=== PATIENT | female | born 1945 | race Caucasian/White ===

== ENCOUNTER 2017-04-19 09:50 | Emergency (ER) | payer BC, OTHER ==
[~2017-04-19] VITALS: Ht 167.6 cm; Wt 62.5 kg
[2017-04-19 09:55] VITALS: TEMP 36.7; Ht 167.6 cm; Wt 62.5 kg
[2017-04-19] MEDS ORDERED: BILB40CA4 PO (10:24)
[2017-04-19] MEDS ORDERED: ASCO10003 PO (10:24)
[2017-04-19] MEDS ORDERED: OMEG10007 PO (10:24)
[2017-04-19] MEDS ORDERED: [UNRECOGNIZED DRUG - OTHER] PO (10:24)
[2017-04-19] MEDS ORDERED: CQ10 PO (10:24)
[2017-04-19] MEDS ORDERED: CALC500C70 PO (10:24)
[2017-04-19] MEDS ORDERED: NAPR1TAB9 PO (10:25)
--- NOTE | 2017-04-19 11:26 | DIAGNOSTIC IMAGING REPORT ---
LEFT ANKLE MIN 3 VIEWS ROUTINE, LEFT FOOT MIN 3 VIEWS ROUTINE HISTORY: 71 years-old Female acute left-sided ankle swelling/pain COMPARISON: None available TECHNIQUE: 3 views of the left ankle and 3 views of the left foot. FINDINGS: Ankle: There is a 3 mm bone fragment adjacent to the medial malleolus. There is moderate circumferential soft tissue swelling about the ankle a small joint effusion. There is spurring about the calcaneus and dorsal midfoot. Foot: Moderate degenerative changes are seen within the first MTP joint with hallux valgus deformity. Bones are mildly demineralized. Type II accessory navicular is present. Bone fragment is noted adjacent to the medial malleolus. Bones of the foot appear intact. There is moderate dorsal forefoot soft tissue swelling. IMPRESSION: 1. Small bone fragment adjacent to the medial malleolus suggests acute avulsion fragment with moderate ankle soft tissue swelling and small joint effusion. 3. Moderate dorsal forefoot soft tissue swelling without additional acute fracture or dislocation. The above report was generated using voice recognition software. It may contain grammatical, syntax or spelling errors. Electronically signed by: Morris Carranza M.D. 04/19/2017 11:25 AM Dictated Date/Time: 04/19/2017 11:23 AM
--- NOTE | 2017-04-19 11:59 | EMERGENCY ROOM VISIT NOTE ---
ED Visit Note First contact with patient: 10:00 CHIEF COMPLAINT: Left ankle and foot pain HISTORY OF PRESENT ILLNESS: This 71-year-old female patient presents to the emergency department 1 day after sustaining an injury to the left ankle and foot when she fell at 4:30 in the morning. The patient states she got up and out of bed, and believes she tripped over an object. The patient states she fell down, but denies head injury. She does report left foot and ankle pain. The patient states immediately after the incident, she soaked her foot in warm water. She states this did help to loosen the discomfort. The patient states she then put ice on the foot, which does seem to have helped as well. The patient complains of pain along the outside of the ankle, and now worse on the inside of the ankle. The patient does have pain on top of the foot. The patient rates the pain as sharp with weightbearing, with a little bit of numbness and 0/10 at rest, 5/10 with weightbearing. The patient is able to bear weight on the foot. Pain is worse with movement, weight bearing, and the dependent position. No knee pain, the patient is able to move their toes. No tingling or weakness of the foot, no laceration. The patient has not had a previous fracture to this ankle. The patient has taken Aleve yesterday, which did help the pain. The patient denies any other injury. REVIEW OF SYSTEMS: A 6 system review of systems was completed with positives and pertinent negatives listed in the HPI. ALLERGIES: Sulfa MEDICATIONS: Various OTC vitamins. I did personally review the medication list at bedside. PMH: None SOCIAL HISTORY: The patient lives locally with family. She denies drug, alcohol , tobacco use. PHYSICAL EXAM: Vital Signs: Reviewed Nurse's notes, vital signs stable. GENERAL : This is a very active, 71-year-old female, no acute distress, well-developed , well-nourished. MENTAL STATUS: Alert, oriented to person place and time, and cooperative. MUSCULOSKELETAL: The left ankle and foot are extremely swollen with ecchymosis. There is some mild tenderness over the medial and lateral malleoli, as well as on the dorsal aspect of the foot. The skin is intact and there is no ligamentous instability. There is no fifth metatarsal tenderness. There is no tenderness over the rest of the foot. There is no calf or tibia/ fibular tenderness. There is no visual deformity. The foot and toes are warm and well-perfused. Dorsalis pedis pulse 2+. Sensation to pain and light touch is intact. Capillary refill less than 2 seconds. RADIOLOGY: X-ray left foot and ankle: FINDINGS: Ankle: There is a 3 mm bone fragment adjacent to the medial malleolus. There is moderate circumferential soft tissue swelling about the ankle a small joint effusion. There is spurring about the calcaneus and dorsal midfoot. Foot: Moderate degenerative changes are seen within the first MTP joint with hallux valgus deformity. Bones are mildly demineralized. Type II accessory navicular is present. Bone fragment is noted adjacent to the medial malleolus. Bones of the foot appear intact. There is moderate dorsal forefoot soft tissue swelling. IMPRESSION: 1. Small bone fragment adjacent to the medial malleolus suggests acute avulsion fragment with moderate ankle soft tissue swelling and small joint effusion. 3. Moderate dorsal forefoot soft tissue swelling without additional acute fracture or dislocation. EMERGENCY DEPARTMENT COURSE: I examined the patient. X-rays of the left foot and ankle were reviewed by myself and read by radiology and reveal small avulsion fracture on the medial malleolus as well as soft tissue swelling around the foot. A walking boot was applied to the ankle under my direction and the position was satisfactory. I did offer the patient crutches, a walker, or a cane, and she refuses. I also offered the patient pain medication in the emergency department or as a prescription, and she refuses this as well. The patient was seen by Dr. Lr, who did personally evaluate the patient at bedside. We agreed that the patient should see orthopedics. The patient states she may not, so case management was asked to help her establish an appointment with [facility]. The patient was discharged home in good condition. Patient was found to have normal blood pressure on screening and does not require follow-up. DIFFERENTIAL DIAGNOSIS: Fracture, contusion, sprain, strain, malignancy, and others DIAGNOSIS: Avulsion fracture of medial malleolus, left ankle sprain DISCHARGE INSTRUCTIONS: ORTHOPEDIC INSTRUCTIONS: Ibuprofen(Motrin, Advil) may be used for fever or pain. Use 600mg every six hours as needed. Take with food. Avoid using more than 2400mg in a 24 hour period. Do not use 2400mg per day for more than three consecutive days without physician direction. Prolonged inappropriate use can lead to stomach upset or ulcers. (AND/OR) Acetaminophen(Tylenol) may be used for fever or pain. Use 1000mg every six to eight hours as needed. Avoid using more than 3000mg in a 24 hour period. Ice compresses for 20 minutes at a time four times daily for 2-3 days. I do recommend you use a walker or cane to help to avoid weightbearing as much as possible on the foot. Wear the boot to help with ambulation. Rest and elevate your injury. Return to the ER immediately for any numbness, tingling, severe pain, extreme swelling in the extremity or as needed. The film processing utility worker will help to get you established with [facility] for follow-up this week. Please keep this appointment and see them as directed. Follow-up with your primary care physician in 2 to 3 days for a recheck of your current condition. Current/Historical Medications Scheduled Ascorbic Acid (Vitamin C), 1 TAB PO QAM Bilberry (Vaccinium Myrtillus) (Bilberry), 0 PO QAM Calcium/Vitamin D (Os-Stef 500 Plus D), 1 TAB PO QAM Fish Oil (Kaibeto-3), 1 CAP PO QAM Naproxen (Aleve), 440 MG PO UD [Cq10], 1 TAB PO QAM [Mineral Rich], 2 TBS PO THURSDAY Allergies Coded Allergies: Sulfa Antibiotics (Unverified Allergy, Intermediate, HIVES, 04/19/17) Vital Signs Date Time Temp Pulse Resp B/P (MAP) Pulse Ox O2 Delivery O2 Flow Rate FiO2 04/19/17 09:55 36.7 84 16 130/81 98 Room Air Departure Information Impression Primary Impression: Avulsion fracture of ankle Additional Impression: Ankle sprain Dispostion Home / Self-Care Condition GOOD Referrals Aby Hernandez, C.R.N.P (PCP) [facility] Patient Instructions ED Sprain Ankle, [facility] Additional Instructions ORTHOPEDIC INSTRUCTIONS: Ibuprofen(Motrin, Advil) may be used for fever or pain. Use 600mg every six hours as needed. Take with food. Avoid using more than 2400mg in a 24 hour period. Do not use 2400mg per day for more than three consecutive days without physician direction. Prolonged inappropriate use can lead to stomach upset or ulcers. (AND/OR) Acetaminophen(Tylenol) may be used for fever or pain. Use 1000mg every six to eight hours as needed. Avoid using more than 3000mg in a 24 hour period. Ice compresses for 20 minutes at a time four times daily for 2-3 days. I do recommend you use a walker or cane to help to avoid weightbearing as much as possible on the foot. Wear the boot to help with ambulation. Rest and elevate your injury. Return to the ER immediately for any numbness, tingling, severe pain, extreme swelling in the extremity or as needed. The film processing utility worker will help to get you established with [facility] for follow-up this week. Please keep this appointment and see them as directed. Follow-up with your primary care physician in 2 to 3 days for a recheck of your current condition. Problem Qualifiers Primary Impression: Avulsion fracture of ankle Encounter type: initial encounter Fracture type: closed Laterality: left Qualified Codes: S82.892A - Other fracture of left lower leg, initial encounter for closed fracture Additional Impression: Ankle sprain Encounter type: initial encounter Involved ligament of ankle: unspecified ligament Laterality: left Qualified Codes: S93.402A - Sprain of unspecified ligament of left ankle, initial encounter
[2017-04-19 13:00] VITALS: BP 122/80; PULSE 78; O2SAT 98
== END 2017-04-19 13:00 | disposition home or self-care (01) ==
LOC: C.EDB 09:51 → C.EDA 13:00
DX: M84.472A Pathological fracture, left ankle, initial encounter for fracture (principal); S93.402A Sprain of unspecified ligament of left ankle, initial encounter; W19.XXXA Unspecified fall, initial encounter

== ENCOUNTER → 2017-11-16 | Outpatient (CLI) | payer BC ==
[~2017-11-16] MED LIST: ASCO10003 PO; BILB40CA4 PO; CALC500C70 PO; CQ10 PO; NAPR1TAB9 PO; OMEG10007 PO; [UNRECOGNIZED DRUG - OTHER] PO
== END | disposition home or self-care (01) ==
LOC: C.LAB 09:57
PROVIDERS: ATTEND Obstetrics & Gynecology
DX: Z85.43 Personal history of malignant neoplasm of ovary (principal)

== ENCOUNTER 2019-12-25 11:02 | Observation (INO) ==
--- NOTE | 2019-12-25 11:39 | Emergency Department Note ---
Impression & Plan Acute congestive heart failure, Bilateral pleural effusion, Shortness of breath, Abnormal EKG ED Provider Note NAME: GEORGE PICKENS AGE: 74 SEX: F : 1945 ARRIVES VIA: Walk-In INFORMANT: Patient ED PROVIDER(S): Evin Ordonez DO CHIEF COMPLAINT: Shortness of breath HPI: Patient is a 74-year-old female who presents the ER for shortness of breath. Shortness of breath has been present for the past month. She was seen twice at [facility] and placed on doxycycline and Tessalon Perles. She was told she was diagnosed with pneumonia. She denies any current chest pain. She did note that around November 25 she had chest pain with swallowing but this all resolved after she took doxycycline. She was also placed on antireflux medication. Patient still admits to a dry persistent cough which is been worsening over this past month. No other exacerbating or remitting factors. No fevers. No belly pain nausea vomiting diarrhea. No chest pain. Shortness of breath that is worsened with any kind of movement. Patient denies swelling of calves, recent trips, history of immobilization or recent surgery, prior history of DVT, hemoptysis, history of malignancy, history of smoking, or control/estrogen use. Patient denies diabetes, hypertension, hyperlipidemia, CAD, and history of sudden at a young age. ROS: See above HPI for pertinent positives & negatives. A total of 10 systems reviewed and were otherwise negative. PAST MEDICAL HISTORY:Uterine cancer PAST SURGICAL HISTORY:Hysterectomy FAMILY HISTORY:Coronary artery disease SOCIAL HISTORY:See Below HOME MEDICATIONS:See Below ALLERGIES:See Below VITALS:See Below PHYSICAL EXAMINATION: GENERAL: Sitting up in bed, alert, well appearing, well nourished, no distress, non-toxic EYE EXAM: normal conjunctiva. OROPHARYNX: no exudate, no erythema, lips, buccal mucosa, and tongue normal and mucous membranes are moist NECK: supple, no nuchal rigidity, no adenopathy, non-tender LUNGS: Clear to auscultation. Normal chest wall mechanics HEART: no murmurs, S1 normal and S2 normal ABDOMEN: abdomen soft, non-tender, normo-active bowel sounds, no masses, no rebound or guarding. BACK: Back is symmetrical on inspection and there is no deformity, no midline tenderness, no CVA tenderness. SKIN: no rashes and no bruising UPPER EXTREMITIES: upper extremities are grossly normal. LOWER EXTREMITIES: Calves are equal bilateral NEURO EXAM: Normal sensorium, cranial nerves II-XII grossly intact, normal s peech, no gross weakness of arms, no gross weakness of legs. MEDICAL DECISION MAKING: Patient is a 74-year-old female who presents the ER for shortness of breath which has been present for the past month. She notes that when she lays down she does cough. No change for doxycycline. IV was established blood work was obtained shows no significant leukocytosis or anemia. INR was unremarkable. D- dimer was significantly elevated. BMP with a slightly elevated chloride. LFTs bilirubin and troponin was negative. TSH unremarkable. Influenza was negative. Chest x-ray with pleural effusions. CT Eda of the chest was performed due to the d-dimer shortness of breath and persistent tachycardia. Poor study with bilateral filling defects which are favored to be poor contrast timing per radiology. Duplex of the lower extremities was ordered. Discussed with the h ospitalist for observation due to likely new onset CHF. We will hold on anticoagulation till duplex of lower extremities. Patient was updated bedside. In agreement with treatment plan. Triage Nursing notes reviewed. Prior medical records reviewed Vital Signs: reviewed and remarkable for Tachycardia Differential diagnosis: Differential diagnoses includes but is not limited to pneumonia, bronchitis, COPD/Asthma exacerbation, pneumothorax, pulmonary embolism, congestive heart failure, acute coronary syndrome ER treatment provided: See below Diagnostics interpreted by me: ECG: Sinus tachycardia rate of 112 Normal axis PVCs Left bundle branch block Cardiac Monitoring: An order was placed for continuous cardiac monitoring. The monitor shows a rate of 101 with sinus rhythm. Laboratory studies: As stated above and show below. Imaging studies: Portable AP upright 1 view of the chest shows no focal infiltrate but bilateral pleural effusions CT Eda of the chest with poor timing with bilateral pleural effusions and indeterminate PEs. Consultation(s): Discussed with Dr. Ricardo Walls. ED COURSE: Procedures: none Critical Care: None Past Med/Surg History Social History Feels Safe at Home: Yes Allergies Allergies Allergy/AdvReac Type Severity Reaction Status Date / Time Sulfa (Sulfonamide Allergy Intermediate HIVES Unverified 12/25/19 12:00 Antibiotics) Home Meds Home Medications Medication Instructions Recorded Confirmed No Known Home Medications 12/25/19 12/25/19 Results & Data (ED) Vital Signs Vital Signs - 24 hr 12/25/19 11:11 12/25/19 11:40 12/25/19 12:01 Temperature 36.9 C Temperature Source Oral Pulse Rate 111 H Pulse Rate [Apical] 82 Pulse Rhythm [Apical] Irregular Respiratory Rate 18 18 Respiratory Effort / Characteristics Non-Labored Non-Labored Spontaneous Non-Labored Spontaneous Respiratory Depth Normal Normal Normal Respiratory Pattern Regular Regular Blood Pressure 126/93 Blood Pressure [Left Arm] 105/85 Blood Pressure Mean 104 Blood Pressure Mean [Left Arm] 91 Blood Pressure Position Sitting Pulse Oximetry 97 93 Oxygen Delivery Method Room Air Room Air Room Air Sepsis Recent Fever Within 48 Hours No Sepsis Action Taken by Nursing No Action Required 12/25/19 12:05 12/25/19 13:00 12/25/19 13:46 Temperature Temperature Source Pulse Rate 96 H Pulse Rate [Apical] 99 H 93 H Pulse Rhythm [Apical] Respiratory Rate 18 18 17 Respiratory Effort / Characteristics Non-Labored Spontaneous Non-Labored Spontaneous Respiratory Depth Normal Normal Respiratory Pattern Regular Regular Blood Pressure Blood Pressure [Left Arm] 112/77 124/81 Blood Pressure Mean Blood Pressure Mean [Left Arm] 88 95 Blood Pressure Position Pulse Oximetry 94 93 95 Oxygen Delivery Method Room Air Room Air Room Air Sepsis Recent Fever Within 48 Hours Sepsis Action Taken by Nursing Laboratory Data Result diagrams: 12/25/19 11:45 12/25/19 11:45 Lab Results 12/25/19 12/25/19 12/25/19 Range/Units 11:45 11:45 11:45 WBC 5.64 (4.8-10.8) K/uL RBC 4.31 (4.2-5.4) M/uL Hgb 14.2 (12.0-16.0) g/dL Hct 41.1 (37-47) % MCV 95.4 (80-100) fL MCH 32.9 (25-34) pg MCHC 34.5 (32-36) g/dL RDW Std Deviation 54.5 H (36.4-46.3) fL RDW Coeff of Miranda 15.5 H (11.5-14.5) % Plt Count 190 (130-400) K/uL MPV 12.3 H (7.4-10.4) fL Immature Gran % (Auto) 0.2 % Neut % (Auto) 69.4 % Lymph % (Auto) 18.1 % [place] % (Auto) 10.8 % Eos % (Auto) 1.1 % Baso % (Auto) 0.4 % Immature Gran # (Auto) 0.01 (0.00-0.02) K/uL Neut # (Auto) 3.92 (1.4-6.5) K/uL Lymph # (Auto) 1.02 L (1.2-3.4) K/uL [place] # (Auto) 0.61 H (0.11-0.59) K/uL Eos # (Auto) 0.06 (0-0.5) K/uL Baso # (Auto) 0.02 (0-0.2) K/uL PT 11.5 (9.0-12.0) Seconds INR 1.1 (0.9-1.1) APTT 26.3 (21.0-31.0) Seconds PTT Ratio 0.9 D-Dimer 2280 H* (0-500) ug/L FEU Sodium 141 (136-145) mmol/L Potassium 4.0 (3.5-5.1) mmol/L Chloride 109 H (98-107) mmol/L Carbon Dioxide 23 (21-32) mmol/L Anion Gap 9.0 (3-11) BUN 20 H (7-18) mg/dl Creatinine 0.69 (0.6-1.2) mg/dl Est Cr Clr Drug Dosing 67.0 ml/min Est GFR ( Amer) 99.4 Est GFR (Non-Af Amer) 85.8 BUN/Creatinine Ratio 29.2 H (10-20) Glucose 123 H (70-99) mg/dl Calcium 9.0 (8.5-10.1) mg/dl Total Bilirubin 0.7 (0.2-1) mg/dl AST 45 H (15-37) U/L ALT 76 (12-78) U/L Alkaline Phosphatase 74 (45-117) U/L Troponin I < 0.015 (0-0.045) ng/ml NT-Pro-B Natriuret Pep 5424 H (0-900) pg/ml Total Protein 6.9 (6.4-8.2) gm/dl Albumin 3.8 (3.4-5.0) gm/dl Globulin 3.1 (2.5-4.0) gm/dl Albumin/Globulin Ratio 1.2 (0.9-2) Influenza Type A (PCR) (Neg) Influenza Type B (PCR) (Neg) 12/25/19 Range/Units 11:48 WBC (4.8-10.8) K/uL RBC (4.2-5.4) M/uL Hgb (12.0-16.0) g/dL Hct (37-47) % MCV (80-100) fL MCH (25-34) pg MCHC (32-36) g/dL RDW Std Deviation (36.4-46.3) fL RDW Coeff of Miranda (11.5-14.5) % Plt Count (130-400) K/uL MPV (7.4-10.4) fL Immature Gran % (Auto) % Neut % (Auto) % Lymph % (Auto) % [place] % (Auto) % Eos % (Auto) % Baso % (Auto) % Immature Gran # (Auto) (0.00-0.02) K/uL Neut # (Auto) (1.4-6.5) K/uL Lymph # (Auto) (1.2-3.4) K/uL [place] # (Auto) (0.11-0.59) K/uL Eos # (Auto) (0-0.5) K/uL Baso # (Auto) (0-0.2) K/uL PT (9.0-12.0) Seconds INR (0.9-1.1) APTT (21.0-31.0) Seconds PTT Ratio D-Dimer (0-500) ug/L FEU Sodium (136-145) mmol/L Potassium (3.5-5.1) mmol/L Chloride (98-107) mmol/L Carbon Dioxide (21-32) mmol/L Anion Gap (3-11) BUN (7-18) mg/dl Creatinine (0.6-1.2) mg/dl Est Cr Clr Drug Dosing ml/min Est GFR ( Amer) Est GFR (Non-Af Amer) BUN/Creatinine Ratio (10-20) Glucose (70-99) mg/dl Calcium (8.5-10.1) mg/dl Total Bilirubin (0.2-1) mg/dl AST (15-37) U/L ALT (12-78) U/L Alkaline Phosphatase (45-117) U/L Troponin I (0-0.045) ng/ml NT-Pro-B Natriuret Pep (0-900) pg/ml Total Protein (6.4-8.2) gm/dl Albumin (3.4-5.0) gm/dl Globulin (2.5-4.0) gm/dl Albumin/Globulin Ratio (0.9-2) Influenza Type A (PCR) Neg for Influ A (Neg) Influenza Type B (PCR) Neg for Influ B (Neg) Administered Medications Ioversol (Optiray 320 125ml) 120 ml IV ONCE PRN PRN Reason: Interaction Checking Stop: 12/29/19 12:38 Last Admin: 12/25/19 12:40 Dose: 120 ml Documented by: [id number] Discharge Plan Visit Data Chief Complaint: Shortness of Breath/Dyspnea Stated Complaint: SOB,COUGH ED Provider: Evin Ordonez Discharge Problem: Acute congestive heart failure, Bilateral pleural effusion, Shortness of breath, Abnormal EKG Forms Stand Alone Forms: My [facility] Prescriptions Prescriptions: No Action No Known Home Medications RF: 0
[2019-12-25 12:01] LABS: Basophils # (auto) 0.02 K/uL (0-0.2); Basophils % (auto) 0.4 %; Eosinophils # (auto) 0.06 K/uL (0-0.5); Eosinophils % (auto) 1.1 %; Hematocrit (blood only) 41.1 % (37-47); Hemoglobin 14.2 g/dL (12.0-16.0); Immature Granulocytes # (auto) 0.01 K/uL (0.00-0.02); Immature Granulocytes % (auto) 0.2 %; Lymphocytes # (auto) 1.02 K/uL (1.2-3.4); Lymphocytes % (auto) 18.1 %; Mean Corpuscular Hemoglobin 32.9 pg (25-34); Mean Corpuscular Hgb Conc 34.5 g/dL (32-36); Mean Corpuscular Volume 95.4 fL (80-100); Mean Platelet Volume 12.3 fL (7.4-10.4); Monocytes # (auto) 0.61 K/uL (0.11-0.59); Monocytes % (auto) 10.8 %; Neutrophils # (auto) 3.92 K/uL (1.4-6.5); Neutrophils % (auto) 69.4 %; Platelet Count 190 K/uL (130-400); RDW Coefficient of Variation 15.5 % (11.5-14.5); RDW Standard Deviation 54.5 fL (36.4-46.3); Red Blood Count 4.31 M/uL (4.2-5.4); White Blood Count 5.64 K/uL (4.8-10.8)
[2019-12-25 12:19] LABS: Alanine Aminotransferase 76 U/L (12-78); Albumin Level 3.8 gm/dl (3.4-5.0); Aspartate Aminotransferase 45 U/L (15-37); BUN Creatinine Ratio 29.2 (10-20); Blood Urea Nitrogen 20 mg/dl (7-18); Carbon Dioxide 23 mmol/L (21-32); Chloride 109 mmol/L (98-107); Est GFR (African American) 99.4; Est GFR (Non-African American) 85.8; Glucose 123 mg/dl (70-99); Sodium 141 mmol/L (136-145)
[2019-12-25 12:20] LABS: INR 1.1 (0.9-1.1); Partial Thromboplastin Ratio 0.9; Partial Thromboplastin Time 26.3 Seconds (21.0-31.0); Prothrombin Time 11.5 Seconds (9.0-12.0)
[2019-12-25 12:23] LABS: D Dimer 2280 ug/L FEU (0-500)
[2019-12-25 12:24] LABS: Albumin Globulin Ratio 1.2 (0.9-2); Alkaline Phosphatase 74 U/L (45-117); Bilirubin,Total 0.7 mg/dl (0.2-1); Globulin 3.1 gm/dl (2.5-4.0); NT Pro B Type Natriuretic Pept 5424 pg/ml (0-900); Total Protein 6.9 gm/dl (6.4-8.2); Troponin I < 0.015 ng/ml (0-0.045)
[2019-12-25 12:39] LABS: Influenza A virus by PCR Neg for Influ A (Neg); Influenza B virus by PCR Neg for Influ B (Neg)
[2019-12-25] MEDS ORDERED: OPTIRAY 320 125ml IV PRN (12:39)
--- NOTE | 2019-12-25 13:07 | XRay Report ---
XR chest 1V portable HISTORY: Dyspnea COMPARISON: None. FINDINGS: Cardiac silhouette is mildly enlarged. No pneumothorax. Small bilateral pleural effusions, left greater than right. There is mild central pulmonary vascular congestion without overt edema. The upper lung zones are clear. Bibasilar densities are noted. IMPRESSION: 1. Cardiomegaly with mild congestive change. 2. Small bilateral pleural effusions. Associated bibasilar densities are nonspecific but may represen t atelectasis from the pleural effusions. ACT 112: Negative or not required by law. Electronically signed by: Carlito Castillo M.D. 12/25/2019 1:06 PM
--- NOTE | 2019-12-25 13:16 | CT Scan Report ---
CHEST CTA for PULMONARY ARTERIES CT DOSE: 349.83 mGycm HISTORY: Shortness of breath. Positive d-dimer. TECHNIQUE: Multiaxial CT images of the chest were performed following the intravenous administration of contrast to evaluate the pulmonary arteries. Maximal intensity projection images were also obtaine d. A dose lowering technique was utilized adhering to the principles of ALARA. COMPARISON STUDY: PET scan 01/12/2012. FINDINGS: There is a 3.3 cm left thyroid nodule. Normal esophagus. No mediastinal or hilar lymphadeno connor. Retrograde opacification of the hepatic veins. The visualized liver and spleen appear unremark able. Small bilateral pleural effusions. No pericardial effusion. The heart is moderately enlarged. N ormal caliber thoracic aorta. Inadequate assessment for an aortic dissection due to the lack of intra venous contrast from the timing of the study. Apparent filling defects seen within the left lower lob e segmental and subsegmental pulmonary arteries favors inadequate contrast opacification due to the u nderlying heart dysfunction. However, pulmonary emboli could also have a similar appearance. The irma ining pulmonary arteries appear patent. No fractures within the visualized osseous structures. No pne umothorax. The central airways are patent. Patchy bibasilar densities. Mild interlobular septal thick ening suggestive of developing pulmonary edema. No fractures within the visualized osseous structures . IMPRESSION: 1. Apparent filling defects seen within the left lower lobe segmental and subsegmental pulmonary alecia elza favors inadequate contrast opacification due to the underlying heart dysfunction. However, pulmo nary emboli could also have a similar appearance. Consider follow-up bilateral lower extremity venous Doppler to exclude the possibility of underlying DVT. 2. Cardiomegaly, small bilateral pleural effusions, and mild interlobular septal thickening. This is consistent with developing pulmonary edema. 3. Bibasilar densities are nonspecific but favor compressive atelectasis from the pleural effusions. 4. A 3.3 cm left thyroid nodule. ACT 112: Negative or not required by law. Electronically signed by: Carlito Castillo M.D. 12/25/2019 1:15 PM
--- NOTE | 2019-12-25 13:57 | History & Physical Report ---
Date of Service December 25, 2019 Assessment & Plan (1) Shortness of breath: Suspected due to CHF below. No hypoxia or respiratory distress but recommend observation in hospital given new onset. Low likelihood of PE given slow progressive history with no current chest pain or hypoxia. No COVID-19 contacts and no fevers, chills, loss of taste or smell with slow progressive symptoms over a number of weeks - no need for testing. Remove airborne precautions initiated in ER. (2) Acute congestive heart failure: Suspected based on history, examination, imaging and elevated BNP. TTE pending, if wall motion abnormalities will start ASA and consult cardiology (likely for outpatient cardiac cath) Suspect ischemic cardiomyopathy based on LBBB on EKG (not acute onset as noted on [facility] notes) - fasting lipid profile and HbA1C in AM Lasix IV 40mg ONE. Home dose will be based clinically then and on AM labs. Given tachycardia and high likelihood of heart failure will start on metoprolol succinate 25mg PO daily. If heart rate still > 90 and sBP > 100 will give additional dose tonight. Trend BNP Strict I&Os. Daily weights. Fluid restrict to 1200ml Low Na, heart healthy diet (3) Bilateral pleural effusion: Bilateral but R > L. If TTE unremarkable and need to search for alternative cause will discuss with pulmonology for thoracocentesis of left side. Much less likely cancer related despite history of uterine ca. and thyroid nodule noted below (no pulm, bone, brain mets suspected based on imaging and exam), no significant weight loss (4) Atelectasis of both lungs: Secondary to bilateral pleural effusion. No concern for current PNA based on history and imaging. Incentive spirometry Q1HWA (5) Left bundle branch block: Not new onset as reported on [facility] notes, however new since historic 2011 EKG. (6) Thyroid nodule: Non tender on exam. 3.3cm. TSH WNL. Presumed cancerous until proven otherwise. Patient aware. She does not appear to be having any acute issues from this therefore recommend outpatient follow up with US guided FNA. (7) Gastritis: Recent history of this related to doxycycline use. Resolved with famotidine (equivalent given by [facility]). No longer on this. Monitor symptoms off famotidine (8) DVT prophylaxis: Lovenox 40mg SQ daily. Admission and Anticipated Discharge Date Admission Date: 12/25/2019 History of Present Illness Chief Complaint: Shortness of breath Primary Care Provider: NO PCP Kavitha Smith is a 74 year old female with history of uterine cancer s/p hysterectomy with no routine medical care who presents to the ER with 6 week history of progressively worsening shortness of breath. She reports feeling well prior to this. No sudden event that made her worse. No chest pain, fevers, chills or palpitations at that time. It became progressively worse over the following two weeks and she presented to [facility] on November 25. Diagnosed with pneumonia based on CXR and treated with 10 day course of doxycycline which she did not feel helped. Developed chest pain and returned to [facility] on December 05 and diagnosed with gastritis treated with famotidine (equivalent given at [facility]) thought to be secondary to doxycycline however she finished the whole 10 day course. Her chest pain resolved with medication in approximately 4 days but the shortness of breath has continued to get worse. She notes orthopnea, paroxysmal nocturnal dyspnea. She denies any palpitations, claudication, syncope or presyncope. No weight loss. No prior history of heart attack or strokes. She does not follow with a PCP as she is "usually well" and "haven't needed one". However she does follow up once yearly with G[facility]Onc @ [facility] (?Dr Calderon) for history of uterine cancer - diagnosed after strange odor and subsequent D&C, treated with hysterectomy alone. Allergies Allergy/AdvReac Type Severity Reaction Status Date / Time Sulfa (Sulfonamide Allergy Intermediate HIVES Unverified 12/25/19 12:00 Antibiotics) Home Medications Home Medications Medication Instructions Recorded Confirmed Type No Known Home Medications 12/25/19 12/25/19 History Past Med/Surg History Medical History (Updated 12/25/19 @ 15:24 by Ricardo Walls MD) Uterine cancer Surgical History (Updated 12/25/19 @ 14:48 by Ricardo Walls MD) History of hysterectomy for cancer 2014 Social History Preferred Language: [place] Islander Communication Ability: Effective Beliefs That Will Affect Care: Scientology Current Living Situation: Alone Other Information That Helps Us Care for You: No Feels Safe at Home: Yes Safety Concerns: Feels Safe At This Time Smoking Status: Never smoker Hx Alcohol Use: No Hx Substance Use: No Review of Systems Review of Systems: All systems reviewed & are unremarkable except as noted in HPI & below Cardiovascular: no chest pain Physical Exam Constitutional: WD/WN, vitals as above no acute distress Eyes: PERRL, conjunctivae normal, anicteric sclerae ENMT: external ear and nose normal, oropharynx normal Neck: normal visual inspection and trachea midline Thyroid: + thyroid nodule (palpated on left side, noted on CT); no thyromegaly and thyroid nontender Respiratory: normal respiratory effort and able to speak in complete sentences; no respiratory distress, no labored breathing and does not use accessory muscles Auscultation: + breath sounds absent (bibasal); no crackles, no rales, no rhonchi and no wheezes Cardiovascular: Rate/Rhythm: regular rate and regular rhythm (frequent skipped beats) Heart Sounds: no murmur Vessels: no JVD Extremities: normal capillary refill and + pedal edema (trace equal b/l); no calf tenderness Gastrointestinal (Abdomen): Inspection/Auscultation: abdomen normal to inspection and normal bowel sounds; abdomen not distended Percussion/Palpation: abdomen soft; abdomen nontender, no guarding and abdomen not rigid Musculoskeletal: no cyanosis or clubbing, extremities motor strength 5/5 Skin: no rashes, warm and dry Neurologic: moves all extremities and awake; no focal motor deficits and not confused Speech / Cognition: normal speech Motor/Sensory: no tremor Cranial Nerves: normal facial strength Psychiatric: A+Ox3, euthymic affect Lymphatic: no cervical or axillary lymphadenopathy Results & Data Results & Data ([facility]) Vital Signs (Past 12 Hours) Vital Signs Temp Pulse Pulse Resp BP BP Pulse Ox 12/25/19 13:46 93 H 17 124/81 95 12/25/19 13:00 99 H 18 112/77 93 12/25/19 12:05 96 H 18 94 12/25/19 12:01 82 18 105/85 93 12/25/19 11:11 36.9 C 111 H 18 126/93 97 Diagnostic Findings XR chest 1V portable IMPRESSION: 1. Cardiomegaly with mild congestive change. 2. Small bilateral pleural effusions. Associated bibasilar densities are nonspecific but may represent atelectasis from the pleural effusions. CHEST CTA for PULMONARY ARTERIES IMPRESSION: 1. Apparent filling defects seen within the left lower lobe segmental and subsegmental pulmonary arteries favors inadequate contrast opacification due to the underlying heart dysfunction. However, pulmonary emboli could also have a similar appearance. Consider follow-up bilateral lower extremity venous Doppler to exclude the possibility of underlying DVT. 2. Cardiomegaly, small bilateral pleural effusions, and mild interlobular septal thickening. This is consistent with developing pulmonary edema. 3. Bibasilar densities are nonspecific but favor compressive atelectasis from the pleural effusions. 4. A 3.3 cm left thyroid nodule. BILATERAL LOWER EXTREMITY VENOUS DOPPLER IMPRESSION: No DVT within the right or left lower extremity. ECG Indication: SOB/dyspnea Rate (beats per minute): 112 Rhythm: normal sinus Findings: + LBBB and + PVC (frequent) Comparison ECG Date: from (10/16/2011) Change: the following changes noted (new LBBB and PVCs) Code Status & VTE Plan Code Status Full VTE Prophylaxis Plan VTE Prophylaxis will be ordered: Yes PG Care Time/CCT Total # of Minutes Spent Total Time Spent with Patient: Total time spent is greater than 50% in coordination of care (as documented) at patient's floor/unit and/or counseling patient: Coding Level of Care Code 42577 Initial Inpt Care Lvl 3 Diagnoses Shortness of breath R06.02 Acute congestive heart failure I50.9 Heart failure type: unspecified Bilateral pleural effusion J90 Atelectasis of both lungs J98.11 Left bundle branch block I44.7 Thyroid nodule E04.1 Gastritis K29.00 Chronicity: acute Gastritis bleeding: without bleeding Gastritis type: superficial DVT prophylaxis Z29.9 (1) Acute congestive heart failure Heart failure type: unspecified Qualified Code(s): I50.9 - Heart failure, unspecified (2) Gastritis Chronicity: acute Gastritis bleeding: without bleeding Gastritis type: superficial Qualified Code(s): K29.00 - Acute gastritis without bleeding
--- NOTE | 2019-12-25 14:45 | Ultrasound Report ---
BILATERAL LOWER EXTREMITY VENOUS DOPPLER HISTORY: Abnormal chest CTA. Possible pulmonary embolus. COMPARISON STUDY: None. FINDINGS: There is normal compressibility, flow, and augmentation within the bilateral lower extremit y deep venous systems. IMPRESSION: No DVT within the right or left lower extremity. ACT 112: Negative or not required by law. Electronically signed by: Carlito Castillo M.D. 12/25/2019 2:44 PM
[2019-12-25] MEDS ORDERED: ACETAMINOPHEN 325 MG TAB PO PRN (15:09)
[2019-12-25] MEDS ORDERED: POLYETHYLENE (MIRALAX) 17 GM PACK PO PRN (15:09)
[2019-12-25] MEDS ORDERED: ONDANSETRON INJ 2 MG/ML 2 ML VIAL IV PRN (15:09)
[2019-12-25] MEDS ORDERED: METOPROLOL SUCC 25MG EXT REL TAB PO SCH (15:09)
[2019-12-25] MEDS ORDERED: FUROSEMIDE 40 MG/4 ML VIAL IV ONE (15:09)
[2019-12-25 15:37] LABS: Appearance Urine Clear (Clear); Bilirubin Urine Negative (Negative); Blood Urine Negative (Negative); Color Urine Yellow; Glucose Urine UA Negative (Negative); Ketones Urine Negative (Negative); Leukocyte Esterase Urine Negative (Negative); Nitrite Urine Negative (Negative); Protein Urine Negative (Negative); Specific Gravity Urine 1.039 (1.000-1.030); Urobilinogen Urine Negative (Negative)
[2019-12-25] MEDS ORDERED: MAGNESIUM SULFATE / D5W 1 GM/100 ML BAG IV ONE (15:45)
[2019-12-25] MEDS ORDERED: FUROSEMIDE 40 MG in SYRINGE 0 ML IV ONE (15:45)
[2019-12-25] MEDS: ASPIRIN 81 MG ECTAB PO SCH (20:30)
[2019-12-25] MEDS ORDERED: METOPROLOL SUCC 25MG EXT REL TAB PO ONE (21:00)
[2019-12-25] MEDS ORDERED: ENOXAPARIN INJ 40 MG/0.4 ML SYR SQ SCH (21:00)
[2019-12-26 06:13] LABS: Basophils # (auto) 0.02 K/uL (0-0.2); Basophils % (auto) 0.4 %; Eosinophils % (auto) 1.8 %; Hematocrit (blood only) 39.5 % (37-47); Hemoglobin 14.2 g/dL (12.0-16.0); Immature Granulocytes # (auto) 0.02 K/uL (0.00-0.02); Immature Granulocytes % (auto) 0.4 %; Lymphocytes # (auto) 1.19 K/uL (1.2-3.4); Lymphocytes % (auto) 21.7 %; Mean Corpuscular Hemoglobin 34.7 pg (25-34); Mean Corpuscular Hgb Conc 35.9 g/dL (32-36); Mean Corpuscular Volume 96.6 fL (80-100); Mean Platelet Volume 12.6 fL (7.4-10.4); Monocytes # (auto) 0.73 K/uL (0.11-0.59); Monocytes % (auto) 13.3 %; Neutrophils # (auto) 3.43 K/uL (1.4-6.5); Neutrophils % (auto) 62.4 %; Platelet Count 181 K/uL (130-400); RDW Coefficient of Variation 15.8 % (11.5-14.5); RDW Standard Deviation 55.5 fL (36.4-46.3); Red Blood Count 4.09 M/uL (4.2-5.4); White Blood Count 5.49 K/uL (4.8-10.8)
[2019-12-26 06:48] LABS: Albumin Globulin Ratio 1.1 (0.9-2); Albumin Level 3.5 gm/dl (3.4-5.0); BUN Creatinine Ratio 22.4 (10-20); Bilirubin,Total 0.8 mg/dl (0.2-1); Calcium 8.9 mg/dl (8.5-10.1); Creatinine Clr Calc Pharmacy 62.4 ml/min; Est GFR (African American) 92.5; Est GFR (Non-African American) 79.8; Globulin 3.1 gm/dl (2.5-4.0); Potassium 3.5 mmol/L (3.5-5.1); Total Protein 6.6 gm/dl (6.4-8.2)
[2019-12-26 06:51] LABS: Estimated Average Glucose 117 mg/dl; Hemoglobin A1C 5.7 % (4.5-5.6)
--- NOTE | 2019-12-26 08:47 | Electrocardiogram Report ---
Test Reason : Blood Pressure : / mmHG Vent. Rate : 112 BPM Atrial Rate : 111 BPM P-R Int : 182 ms QRS Dur : 128 ms QT Int : 354 ms P-R-T Axes : 058 092 -25 degrees QTc Int : 483 ms Probable Sinus tachycardia with frequent Premature ventricular complexes Non-specific intra-ventricular conduction block Abnormal ECG When compared with ECG of 16-OCT-2011 11:42, HR has increased by 35 bpm Premature ventricular complexes now present QRS duration has increased Confirmed by Senthil Shannon ([id number]) on 12/26/2019 8:47:20 AM Referred By: REFERRED SELF Confirmed By:Senthil Shannon
[2019-12-26] MEDS: ASPIRIN 81 MG ECTAB PO SCH (08:48)
[2019-12-26] MEDS ORDERED: METOPROLOL SUCC 50MG EXT REL TAB PO SCH (09:00)
--- NOTE | 2019-12-26 09:40 | XCELERA ---
[id number] \\[id number]}___[id number]
[2019-12-26 15:37] VITALS: BP 110/74; TEMP 98.2; O2SAT 99
[2019-12-26 17:58] VITALS: PULSE 113
--- NOTE | 2020-01-01 23:53 | Discharge Summary ---
Date of Service December 26, 2019 Admission HPI Per Admitting Provider Kavitha Smith is a 74 year old female with history of uterine cancer s/p hysterectomy with no routine medical care who presents to the ER with 6 week history of progressively worsening shortness of breath. She reports feeling well prior to this. No sudden event that made her worse. No chest pain, fevers, chills or palpitations at that time. It became progressively worse over the following two weeks and she presented to [facility] on November 25. Diagnosed with pneumonia based on CXR and treated with 10 day course of doxycycline which she did not feel helped. Developed chest pain and returned to [facility] on December 05 and diagnosed with gastritis treated with famotidine (equivalent given at [facility]) thought to be secondary to doxycycline however she finished the whole 10 day course. Her chest pain resolved with medication in approximately 4 days but the shortness of breath has continued to get worse. She notes orthopnea, paroxysmal nocturnal dyspnea. She denies any palpitations, claudication, syncope or presyncope. No weight loss. No prior history of heart attack or strokes. She does not follow with a PCP as she is "usually well" and "haven't needed one". However she does follow up once yearly with GynOnc @ [facility] (?Dr Calderon) for history of uterine cancer - diagnosed after strange odor and subsequent D&C, treated with hysterectomy alone. Principal Diagnosis Acute systolic CHF Discharge Exam Constitutional: WD/WN, vitals as above no acute distress Eyes: PERRL, conjunctivae normal, anicteric sclerae ENMT: external ear and nose normal, oropharynx normal Neck: normal visual inspection and trachea midline Thyroid: + thyroid nodule (palpated on left side, noted on CT); no thyromegaly and thyroid nontender Respiratory: normal respiratory effort and able to speak in complete sentences; no respiratory distress, no labored breathing and does not use accessory muscles, clear breath sounds no crackles, no rales, no rhonchi and no wheezes Cardiovascular: Rate/Rhythm: regular rate and regular rhythm (frequent skipped beats) Heart Sounds: no murmur Vessels: no JVD Extremities: normal capillary refill and + pedal edema (trace equal b/l); no calf tenderness Gastrointestinal (Abdomen): Inspection/Auscultation: abdomen normal to inspection and normal bowel sounds; abdomen not distended Percussion/Palpation: abdomen soft; abdomen nontender, no guarding and abdomen not rigid Musculoskeletal: no cyanosis or clubbing, extremities motor strength 5/5 Skin: no rashes, warm and dry Neurologic: moves all extremities and awake; no focal motor deficits and not confused Speech / Cognition: normal speech Motor/Sensory: no tremor Cranial Nerves: normal facial strength Psychiatric: A+Ox3, euthymic affect Lymphatic: no cervical or axillary lymphadenopathy Discharge Data Allergies Allergy/AdvReac Type Severity Reaction Status Date / Time Sulfa (Sulfonamide Allergy Intermediate HIVES Unverified 12/25/19 12:00 Antibiotics) Consultations 12/25/19 13:47 ED Decision to Admit Stat 12/26/19 17:16 Consult [facility] dialysis equipment technician Routine 12/26/19 17:25 [facility] Ref[facility] Routine Ordered Studies 12/25/19 12:25 CT angio chest PE protocol Stat 12/25/19 13:26 US venous doppler LE Stat Hospital Course (1) Shortness of breath: Suspected due to CHF below. No hypoxia or respiratory distress but recommend observation in hospital given new onset. Low likelihood of PE given slow progressive history with no current chest pain or hypoxia. No COVID-19 contacts and no fevers, chills, loss of taste or smell with slow progressive symptoms over a number of weeks - no need for testing. Remove airborne precautions initiated in ER. Improved with IV diuresis will need followup with Heart failure clinic. (2) Acute congestive heart failure: Suspected based on history, examination, imaging and elevated BNP. TTE completed, likely nonischemic. EF 25% WILL NEED F/U WITH [facility], had suspected ischemic cardiomyopathy based on LBBB on EKG (not acute onset as noted on [facility] notes) - fasting lipid profile and HbA1C in AM Lasix IV 40mg ONE. Home dose will be based clinically then and on AM labs. (3) Bilateral pleural effusion: Bilateral but R > L. If TTE unremarkable and need to search for alternative cause will discuss with pulmonology for thoracocentesis of left side. Much less likely cancer related despite history of uterine ca. and thyroid nodule noted below (no pulm, bone, brain mets suspected based on imaging and exam), no significant weight loss (4) Atelectasis of both lungs: Secondary to bilateral pleural effusion. No concern for current PNA based on history and imaging. Incentive spirometry Q1HWA (5) Left bundle branch block: Not new onset as reported on [facility] notes, however new since historic 2011 EKG. (6) Thyroid nodule: Non tender on exam. 3.3cm. TSH WNL. Presumed cancerous until proven otherwise. Patient aware. She does not appear to be having any acute issues from this therefore recommend outpatient follow up with US guided FNA. (7) Gastritis: Recent history of this related to doxycycline use. Resolved with famotidine (equivalent given by [facility] pharmacy). No longer on this. Monitor symptoms off famotidine (8) DVT prophylaxis: Lovenox 40mg SQ daily. Total Time Total Time Spent Total Time Spent (In Minutes): 32 Total Time Includes: Examination of the Patient, Discharge Planning and Medication Reconciliation Discharge Plan Discharge Items Patient Disposition: Home - Self-Care Reason For Visit: SOB Discharge Diagnosis: CHF Activity: Resume your previous activity 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 contact: Primary Care Provider Call non-emergency contact if: you have any medication questions Follow-up/Referrals: Monique Ortiz PA-C [Physician National Sales Associate] - 01/04/20 9:00 am (Congestive Heart Failure Program Appointment Information Early follow up is essential to managing your heart failure. An appointment has been scheduled for you with the [facility] Heart Failure Program within 7 days of discharge. Anticipate this visit to be 30-60 minutes long. Please expect a production superintendent phone call from one of our nurses approximately 48 hours from discharge. They will also be placing an order for lab work to be completed 1-2 days prior to your heart failure follow up appointment. Please be sure to have this done so we can go over the results when you come in. Office Location The cardiology office building is located in front of the hospital at [address] Bring the following with you to your follow-up doctor appointments: Please bring your daily weight log any discharge paperwork all of your medication bottles with you to this visit. ) PCP,NO [Primary Care Provider] - Diet: Heart Healthy and Low Sodium (2gm) Addtl Attending Provider Instructions: You were diagnosed with new onset congestive heart failure. WILL RECOMMEND Followup within 1 week with PCP. Needs followup with heart failure clinic. within 1 month. Needs followup with Cariology within 1 month. You will need to monitor your dry weight daily. Please give PCP a call if weight is above 2 pounds. Call your Primary Care doctor if any of the following symptoms or problems start or get worse: * Shortness of breath or difficulty breathing * Wake up at night short of breath * Chest pain * Cough * Swelling of your hands, feet, or legs * More fatigued or tired with your normal activity * Palpitations - sudden fast heart beats WEIGHT * Weigh yourself every morning after using the bathroom. * Use the same scale. * Wear the same amount of clothing. * Write your weight down on a chart. * Call your Primary Care doctor if you gain more than 2-3 pounds in 1-2 days. MEDICATIONS * Use this discharge instruction sheet for medication instructions. * Take your medications at the time your doctor ordered. * Do not skip a dose of your medicines. * If you miss a dose of medicine, take it as soon as possible, but DO NOT DOUBLE A DOSE. * Read your medicine information when you get home. * Know all of the side effects of your medicine. If in doubt, ask your pharmacist * Call your Primary Care doctor's office if you have any side effects. * Be sure all of your doctors know what medicine and herbs you take (including cold, flu, and herbal medicine). Take the following with you to your follow-up doctor appointments: * Weight Chart * Medication List * List of questions Do not drink excessive alcohol, beer or wine. Pending Studies at Discharge: No Stand-Alone Forms: My [facility] [email or web address], Smoking Cessation Medications and DC Order Prescriptions: New metoprolol succinate 50 mg Tablet Extended Release 24 Hr 50 mg PO QAM Qty: 30 RF: 0 aspirin 81 mg Tablet,Delayed Release (Dr/Ec) 81 mg PO QAM Qty: 30 RF: 0 lisinopril 2.5 mg tablet 2.5 mg PO PM Qty: 30 RF: 0 furosemide 20 mg tablet 20 mg PO Q OTHER DAY Qty: 15 RF: 0 potassium chloride 10 mEq capsule, extended release 10 meq PO Q OTHER DAY Qty: 15 RF: 0 No Action No Known Home Medications RF: 0 Discharge Orders: Discharge Order (Routine); Ordered 12/26/19 Ordered By: Peter Londono Admission Data Admit Date/Time: 12/25/19 13:54 Attending Provider: Peter Londono Admit Provider: Ricardo Walls Primary Care Provider: PCP,NO Other Interventions: Discharge Summary Assessment (RN) Last Done: 12/26/19 17:57 DC Date/Time DO NOT enter until pt leaves facility: 12/26/19 19:00 Coding Level of Care Code 91114 OBS Care - Discharge Diagnoses Shortness of breath R06.02 Acute congestive heart failure I50.9 Heart failure type: unspecified Bilateral pleural effusion J90 Atelectasis of both lungs J98.11 Left bundle branch block I44.7 Thyroid nodule E04.1 Gastritis K29.00 Gastritis type: superficial Chronicity: acute Gastritis bleeding: without bleeding DVT prophylaxis Z29.9
--- NOTE | 2020-01-09 10:13 | Coding Query ---
A supporting diagnosis is required for the test/procedure performed on this patient in order for us to be reimbursed by the patient's insurance. Please provide a supporting diagnosis for the following test/procedure listed below next to the test name along with your signature. *If there is no additional diagnosis for this patient that would support the following test/procedure please document that below next to the test/procedure. Test(s)/Procedure(s) that require a supporting diagnosis: HBA1C DIAGNOSIS:____Suspected coronary artery disease Provider Signature: Date: Thank you Heidy Hernandez Health Information Management Once completed, please kindly fax back to [phone] For questions please call [phone] SALLY
== END 2019-12-26 19:00 | disposition home or self-care (01) ==
LOC: ED 11:02 → 2W 11:02 → SUATTDRO 13:54 → 2W 14:33

== ENCOUNTER 2020-06-07 08:22 | Observation (INO) ==
--- NOTE | 2020-06-07 09:47 | History & Physical Bridge Note ---
Date of Service June 07, 2020 History & Physical Bridge Note I have examined the patient, reviewed the History & Physical and in the interval since the performance of the History & Physical I have noted the following changes of clinical significance: no changes noted
--- NOTE | 2020-06-07 09:48 | Pre Anesthesia Assessment ---
Date of Service June 07, 2020 Pre Sedation Assessment Vital Signs Temp Resp BP Pulse Ox 06/07/20 08:49 36.8 C 20 128/74 97 Cardiovascular + regular rate Respiratory + respiratory effort normal Pre-Sedation Airway Assessment Smoking Status: Never smoker Hx Sleep Apnea: No Hx Difficult Intubation: No Short, Thick Neck: No Thyromental Distance: > or= 3.5 Finger Breadths Oral Cavity: + WNL Mallampati Class: II ASA: ASA3 NPO Status Date of Last Intake of Fluids: 06/06/20 Time of Last Intake of Fluids: 22:00 Date of Last Intake of Solid Food: 06/06/20 Time of Last Intake of Solid Foods: 17:00 Procedure Planning Contraindications for Sedation: none Current Medications Reviewed: Yes Notes The planned sedation has been discussed with the patient. Informed Consent was obtained. I have identified the patient, determined the appropriateness of sedation and have assessed the patient immediately prior to the procedure. All medicine(s) and interventions are by my order.
[2020-06-07] MEDS ORDERED: LIDOCAINE HCL 1% 20 ML VIAL ONE (10:01)
[2020-06-07] MEDS ORDERED: BACITRACIN INJ 50,000 UNIT VIAL ONE (10:02)
[2020-06-07] MEDS ORDERED: BUPIVACAINE 0.25% 30 ML VIAL ONE (10:02)
[2020-06-07] MEDS ORDERED: MIDAZOLAM HCL 5 MG/ML 1 ML VIAL ONE (10:07)
[2020-06-07] MEDS ORDERED: fentaNYL citrate 100 MCG/2 ML VIAL ONE (10:07)
[2020-06-07] MEDS ORDERED: oxyCODONE HCL IR 5 MG TAB (IMMEDIATE RELEASE) PO PRN (11:06)
[2020-06-07] MEDS ORDERED: ACETAMINOPHEN 325 MG TAB PO PRN (11:06)
--- NOTE | 2020-06-07 11:06 | Post Anesthesia Assessment ---
Date of Service June 07, 2020 Post Sedation Assessment Vital Signs Temp Resp BP Pulse Ox 06/07/20 08:49 36.8 C 20 128/74 97 Recovery Score Activity: Moves 4 extremities Respiration: Deep Breath/Cough Circulation: +/-20% PreAnes Value Consciousness: Fully Awake Oxygen Saturation: > 92% On Room Air Discharge Sedation Level of Care: Fast Track Phase II Post Sedation Plan On clinical assessment, the patient appears to have tolerated the sedation without complications. Patient is recovering as anticipated. Patient will continue to be monitored by nursing and may be discharged when sedation discharge criteria are met per below protocol. Upon Completions of procedure up to 15 minutes continue every 5 minute vital signs and the P.A.R. score; then discharge to a Phase I or Fast Track to Phase II per the following guidelines: * Discharge Patient to appropriate Phase II area if PAR is 8 or greater or return to pre- procedure baseline. The post - procedure orders will be as directed. * If PAR score is less than 8 or not return to pre-procedure baseline then patient will follow Phase I monitoring till PAR is reached for Phase II. The Phase I may be done in procedure room or may call to secure a Phase I area. * If naloxone or flumazenil are used for reversal, hold in Phase I for continued monitoring from when last reversal dose was given for a minimum of 60 minutes or longer pending the nurse and/or physician discretion of patient condition before discharge to Phase II. Please call the Sedation Physician to re-evaluate and complete post-note for discharge to Phase II area. Do NOT discharge from procedure sedation or Phase 1 until post- sedation evaluation note is complete by procedure /sedation MD Sedation Discharge Instructions to be given to the patient at discharge to home.
--- NOTE | 2020-06-07 11:06 | Electrophysiology Report ---
Date of Service June 07, 2020 Electrophysiology Procedure Electrophysiology Procedure Report Procedure performed: Implantation of single-chamber ICD Staff [employer] consultant: Tony Rawls MD Indication: The patient is a 74-year-old woman with a history of a nonischemic cardiomyopathy. Despite optimal medical therapy she continues to have an ejection fraction less than 35%. She has [place] Heart Association class II symptoms. She has not had revascularization in the past 90 days nor suffered a myocardial infarction in the past 40 days. She has an estimated longevity greater than 1 year and therefore was told be a good candidate for a prophylactic ICD as primary prevention against sudden cardiac . Procedure in detail: The patient was informed of the risks benefits and alternatives to the intended procedure and she wished to proceed. She was taken to the electrophysiology suite in a fasting state. A preoperative antibiotic had been administered. The patient was monitored electrocardiographically throughout today's procedure and conscious sedation was administered per protocol. The left upper pectoral area is prepped and draped in usual sterile fashion. This area was anesthetized using subcutaneous administration of a xylocaine solution. An incision was made at this site and carried down to the prepectoralis fascia using sharp dissection. Electrocautery was also employed for dissection as well as for hemostasis. A device pocket was fashioned tissues above the pectoralis muscle. Subsequent to this maneuver the left axillary vein was accessed using modified Seldinger technique. Sheath was placed over guidewire and use facilitate passage of the ICD lead to the right ventricular apex under fluoroscopic guidance. Adequate sensing and threshold parameters were obtained prior to active-fixation lead to the endocardial surface. The proximal portion of lead was then sutured the prepectoral spot using nonabsorbable suture. The device pocket was irrigated with antibiotic solution. The lead was then attached to the device. The device and lead were then placed in the pocket and pocket was closed in 3 layers of absorbable suture. Steri-Strips and sterile dressing were applied. The device was tested noninvasively prior to conclusion the procedure. The patient tolerated procedure well there no immediate complications. Equipment used: New pulse generator: Rug Dry Room Attendant [employer]. Model number: [id number] serial number [id number] Right ventricular lead: Rug Dry Room Attendant [employer]. Model number: 6935M serial number [id number] Measured data: Right ventricular lead: R waves measured 10.5 mV. Pacing threshold 0.5 V 0.4 ms with a pacing impedance of 513 ohms Impression: Successful implantation of single-chamber ICD MNPG Electrophysiology codes ICD Procedure 1: ICD: 12744 Insert single or dual ICD system PG Moderate Sedation Codes Moderate Sedation Codes Procedure 1: Sedation/Anesthesia: 75858 Mod Sedation by the same physician;Init15 Min Child Age 5 & Up Procedure 2: Sedation/Anesthesia: 14460 Mod Sedation by the same physician; Ea [id number] Minutes
[2020-06-07] MEDS: ceFAZolin 1000MG 1,000 MG/7.5 ML SYR IV SCH (17:46)
[2020-06-07] MEDS: SACUBITRIL-VALSARTAN 49/51 MG TAB PO SCH (20:15)
[2020-06-08] MEDS: ceFAZolin 1000MG 1,000 MG/7.5 ML SYR IV SCH ×2 (02:20→09:02)
--- NOTE | 2020-06-08 08:50 | XRay Report ---
XR chest 2V PA/lateral CLINICAL HISTORY: Pacemaker insertion. COMPARISON STUDY: Chest radiograph and chest CT December 25, 2019. FINDINGS: There is no pneumothorax following placement of a left subclavian pacer/AICD. Lead tip proj ects over the right ventricle. Moderate cardiomegaly is noted. There is no evidence for pulmonary brittney ma. There is no consolidation. No pleural effusion is identified. IMPRESSION: No pneumothorax following placement of a left subclavian pacer/AICD. ACT 112: Negative or not required by law. Electronically signed by: Noe Lester M.D. 06/08/2020 8:49 AM
[2020-06-08] MEDS: SACUBITRIL-VALSARTAN 49/51 MG TAB PO SCH (08:56)
[2020-06-08] MEDS ORDERED: METOPROLOL SUCC 50MG EXT REL TAB PO SCH (09:00)
[2020-06-08] MEDS ORDERED: ASPIRIN 81 MG ECTAB PO SCH (09:00)
[2020-06-08] MEDS ORDERED: POTASSIUM CHLORIDE 10 MEQ TABCR PO SCH (09:00)
[2020-06-08] MEDS ORDERED: FUROSEMIDE 20 MG TAB PO SCH (09:00)
--- NOTE | 2020-06-08 10:24 | Discharge Summary ---
Date of Service June 08, 2020 Admission HPI Per Admitting Provider Patient with longstanding history of a nonischemic cardiomyopathy. On optimal medical therapy but persistent LV dysfunction. Advised to consider an ICD for primary prevention against sudden cardiac Principal Diagnosis q Discharge Data Allergies Allergy/AdvReac Type Severity Reaction Status Date / Time Sulfa (Sulfonamide Allergy Intermediate HIVES Unverified 05/29/20 12:44 Antibiotics) Procedures Performed Operation Date: 06/07/20 10:00 Actual Procedures p ICD Insertion Single or Dual - Bebeto Rwals MD Ordered Studies 06/07/20 06:49 CL Cath Imgs for PACS use only Routine Hospital Course (1) Nonischemic cardiomyopathy: on the day of admission the patient underwent implantation of a single- chamber [employer] ICD. The procedure was uncomplicated. The following morning an x-ray demonstrated stable lead position without evidence of pneumothorax. Interrogation of her device revealed normal function. Evaluation of her wound revealed some mild ecchymosis but no significant hematoma. No drainage or erythema. Curiously, at the time of her interrogation she did appear to be in an SVT at a heart rate of around 120-130 beats per minute. With threshold testing this terminated. The patient was not symptomatic. Total Time Total Time Spent Total Time Spent (In Minutes): 10 Total Time Includes: Examination of the Patient, Discharge Planning and Medication Reconciliation Discharge Plan Discharge Items Patient Disposition: Home - Self-Care Reason For Visit: Cardiomyopathy Discharge Diagnosis: cardiomyopathy Condition on Discharge: Good Activity: Per Instructions section Activity Comment: No lifting left arm above shoulder or behind neck for 6 weeks Lifting: No more than 10 pounds Bathing: Keep incision dry Bathing Comment: keep wound dry and steri-strip intact until f/u next week Driving/Machine Use: No limitations 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 contact: 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 Call non-emergency contact if: your pain is concerning for you, you have a fever, your wound has increased redness, your wound has increased drainage and your wound pain has increased Follow-up/Referrals: Nikhil Sterling DO [Primary Care Provider] - 06/14/20 1:30 pm Diet: Heart Healthy Addtl Attending Provider Instructions: none Pending Studies at Discharge: No Stand-Alone Forms: [employer], Smoking Cessation Medications and DC Order Prescriptions: Continued Entresto 49-51 mg tablet 1 tab PO DAILY Qty: 30 RF: 6 metoprolol succinate 50 mg tablet extended release 24 hr 50 mg PO DAILY RF: 0 furosemide 20 mg tablet 20 mg PO Q OTHER DAY Qty: 15 RF: 11 potassium chloride 10 mEq capsule, extended release 10 meq PO Q OTHER DAY Qty: 15 RF: 11 aspirin 81 mg Tablet,Delayed Release (Dr/Ec) 81 mg PO QAM Qty: 30 RF: 0 No Action oxycodone 5 mg tablet 5 mg PO Q4 PRN (Reason: pain) 5 Days Qty: 5 RF: 0 Discharge Orders: Discharge Order (Routine); Ordered 06/08/20 Ordered By: Bebeto Oneill/Other Patient Handouts: Pacemaker Biventricular & ICD Admission Data Admit Date/Time: 06/07/20 10:49 Attending Provider: Bebeto Rawls Admit Provider: Bebeto Rawls Primary Care Provider: Nikhil Sterling Other Interventions: Discharge Summary Assessment (RN) Last Done: 06/08/20 09:31 Coding Level of Care Code 34927 OBS Care - Discharge Diagnoses Nonischemic cardiomyopathy I42.8
== END 2020-06-08 10:56 | disposition home or self-care (01) ==
LOC: EP 08:22 → 1E 08:22
PROC: EPB.ICD (2020-06-07 10:00)

== ENCOUNTER 2025-04-05 11:04 | Inpatient (IN) ==
--- NOTE | 2025-04-05 11:35 | XRay Report ---
XR chest 1V portable CLINICAL HISTORY: Chest pain, nonspecific COMPARISON STUDY: 06/08/2020 FINDINGS: Stable pacemaker. Stable mild cardiomegaly without pulmonary vascular congestion. No consol idation or pleural effusion. No pneumothorax. IMPRESSION: No acute findings. ACT 112: Negative or not required by law. Electronically signed by: Tommie Holt M.D. 04/05/2025 11:34 AM
[2025-04-05 11:56] LABS: Hematocrit (blood only) 40.1 % (37.0-47.0); Hemoglobin 13.7 g/dl (12.0-16.0); Immature Granulocytes # (auto) 0.02 K/uL (0.01-0.20); Immature Granulocytes % (auto) 0.3 %; Mean Corpuscular Hemoglobin 32.9 pg (25.0-34.0); Mean Corpuscular Volume 96.2 fL (80.0-100.0); Platelet Count 210 K/uL (130-400); RDW Standard Deviation 52.9 fL (36.4-46.3); Red Blood Count 4.17 M/uL (4.20-5.40); White Blood Count 7.32 K/ul (4.8-10.8)
--- NOTE | 2025-04-05 11:58 | Emergency Department Note ---
Impression & Plan AICD lead malfunction, Nonischemic cardiomyopathy, AICD problem ED Provider Note NAME: GEORGE PICKENS AGE: 79 SEX: F : 1945 ARRIVES VIA: Ambulance INFORMANT: Patient ED PROVIDER(S): Manish Hope MD CHIEF COMPLAINT: AICD shock x 2 PLAN: Disposition: Admit MEDICAL DECISION MAKING: The patient is a pleasant 79-year-old woman with a past medical history of nonischemic cardiomyopathy status post AICD placement, hypertension, hyperlipidemia who presents to the emergency department via EMS and then accompanied by family for evaluation of episodes of AICD shock x 2 [address] prior to arrival. Patient denies having any preceding symptoms of heart racing or chest pain. She reports she had been shocked once many years ago and this felt more severe. Otherwise she denies any recent fevers, chills, cough, congestion, GI or symptoms. She denies any symptoms at this time. Patient denies any history of any falls or suspicion of any damage to her AICD. On my evaluation the patient is in no acute distress, afebrile blood pressure 150/70's and vital signs otherwise stable. She appears euvolemic. EKG demonstrates probable sinus rhythm with frequent PVCs without overt acute ischemia. Interrogation of the patient's AICD was performed and reviewed with [employer] on site wastewater systems technician who informed us that the device had malfunctioned as there was a fractured lead. It was recommended to place a magnet on the device to disable it until they could arrive to the bedside for reprogramming. Upon their assessment the device had auto disabled due to detection of the malfunction. The device was reprogrammed and permanently disabled and magnet was removed. [employer] on site wastewater systems technician did communicate with [place] cardiology who began inquiries into ability to replace device in the next couple of days. Appreciate consultation and assistance. Patient's blood work was unremarkable with WBC, H/H and platelets within normal limits. Chemistry without metabolic acidosis. Electrolytes and LFTs unremarkable. High styptic troponin 11.4, within normal limits. BNP 311, nonspecific in setting of the patient's known cardiomyopathy. Lipase is normal. UA without evidence of infection. Given the patient's history of cardiomyopathy now without protection from ventricular arrhythmias the patient and family agree with plan for admission for further management. Case was discussed with Taya Curtis [facility], with Dr. Elder, [facility] hospitalist who will evaluate the patient for admission. Further management per admitting team. Triage Nursing notes reviewed and agree them. Prior/external medical records reviewed Vital Signs: reviewed Differential diagnosis: Cardiac ischemia, aortic dissection, pulmonary embolism, pneumothorax, pneumonia, pericarditis, myocarditis, esophageal rupture, GERD, cholecystitis, pancreatitis, musculoskeletal, as well as other pathologies. ER treatment provided: See below. Diagnostics interpreted by me: ECG: Probable sinus rhythm with frequent PVCs, 85 bpm, nonspecific intraventricular conduction block, QTc 468, QRS 128. Cardiac Monitoring: An order for continuous cardiac monitoring was placed and demonstrated sinus rhythm with frequent PVCs, 85 bpm Laboratory studies: See below Imaging studies: See below Consultation(s): [employer] on site wastewater systems technician. Taya Curtis [facility], with Dr. Elder [facility] hospitalist HPI: Per MDM. ROS: See above HPI for pertinent positives & negatives. A total of 10 systems reviewed and were otherwise negative. VITALS:See Below PHYSICAL EXAMINATION: GENERAL: Awake, alert, well-appearing, in no distress HENT: Normocephalic, atraumatic. Oropharynx unremarkable. EYES: Normal conjunctiva. Sclera non-icteric. NECK: Supple. No nuchal rigidity. FROM. No JVD. RESPIRATORY: Clear to auscultation. CARDIAC: Regular rate, normal rhythm. Extremities warm and well perfused. Pulses equal. ABDOMEN: Soft, non-distended. No tenderness to palpation. No rebound or guarding. No masses. MUSCULOSKELETAL: Chest examination reveals no tenderness. The back is symmetrical on inspection without obvious abnormality. There is no CVA tenderness to palpation. No joint edema. LOWER EXTREMITIES: Calves are equal size bilaterally and non-tender. No edema. No discoloration. NEURO: Normal sensorium. No sensory or motor deficits noted. SKIN: No rash or jaundice noted. Manish Hope MD Past Med/Surg History Problem List (Updated 04/06/25 @ 01:41 by Manish Hope MD) Nonischemic cardiomyopathy (Acute) AICD lead malfunction (Acute) Mild cognitive impairment AICD problem (Acute) Sinusitis Encounter for pre-operative examination Thyroid nodule Shortness of breath Left bundle branch block Gastritis Left ventricular dysfunction Bone/cartilage disorder Vitamin D deficiency ICD (implantable cardioverter-defibrillator), single, in situ Nonischemic cardiomyopathy EF 30-35% moderate MR on echo in 2020 Hyperlipidemia 27.6% ASCVD prior to statin ICD (implantable cardioverter-defibrillator) in place (~2019) follows with Dr Snell Chronic systolic (congestive) heart failure Mitral regurgitation Medical History History of COVID-19 06/2021--mild symptoms, no symptoms now Uterine cancer Treated with surgery ~2014 Surgical History History of left cataract extraction 08/2022 @ [facility] History of bilateral tubal ligation History of dilatation and curettage S/P ICD (internal cardiac defibrillator) procedure (~2019) single-chamber [employer] ICD History of hysterectomy for cancer 2014 Family History Brother Prostate cancer x 2 Coronary heart disease Heart disease Mother Coronary heart disease Heart disease Father Coronary heart disease Heart disease Sister Coronary heart disease Heart disease Other No family history of adverse response to anesthesia Denies family history of Ovarian cancer Diabetes Dementia Myocardial infarction Breast cancer Lung cancer Colorectal cancer Hypertension Stroke Social History Smoking Status: Never smoker Second Hand Exposure: No; Do You Dip or Chew Tobacco: No; Hx Alcohol Use: No Hx Substance Use: No Preferred Language: Georgian Communication Ability: Effective Visual Impairment: No Limitations Hearing Ability: Normal 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 Required: No Beliefs That Will Affect Care: None marital status: / Current Living Situation: Alone current occupational status: retired How many Children do You have: 3 Feels Safe at Home: Yes Childhood Exposure to Second-Hand Smoke: No Diet: regular caffeine: Yes Dental Care, Regularly: Yes Physical Activity Frequency: 3-4 Times per Week Physical Activity Frequency Comment: walks Seatbelt Use: always Sunscreen Use: No Assistive Devices: None Allergies Allergies Allergy/AdvReac Type Severity Reaction Status Date / Time Sulfa (Sulfonamide Allergy Intermediate HIVES Verified 09/30/24 09:44 Antibiotics) Home Meds Home Medications Medication Instructions Recorded Confirmed ascorbic acid (vitamin C) 1,000 mg 2,000 mg PO QAM 08/14/22 04/05/25 tablet (Vitamin C) aspirin 81 mg tablet,delayed 0 mg PO QPM 08/14/22 04/05/25 release euxbvags-ududt-fzxnsqj-quercet 40 1 cap PO QAM 08/14/22 04/05/25 mg-25 mg-10 mg-10 mg capsule calcium 500 mg 1 tab PO QAM 08/14/22 04/05/25 (carb,gluconate)-magnesium 250 mg (gluc,oxide) tablet (Calcium Magnesium) cholecalciferol (vitamin D3) 25 75 mcg PO QAM 08/14/22 04/05/25 mcg (1,000 unit) tablet (Vitamin D3) coenzyme Q10 100 mg capsule 100 mg PO QAM 08/14/22 04/05/25 (CoQ-10) cranberry fruit 400 mg capsule 400 mg PO QAM 08/14/22 04/05/25 zinc 50 mg tablet 50 mg PO BID 08/14/22 04/05/25 furosemide 20 mg tablet 0 mg PO Q OTHER DAY 04/05/25 04/05/25 metoprolol succinate 50 mg 0 mg PO QPM 04/05/25 04/05/25 tablet,extended release 24 hr potassium chloride 10 mEq 0 meq PO Q OTHER DAY 04/05/25 04/05/25 capsule,extended release Previous Rx's Medication Instructions Recorded sacubitril 49 mg-valsartan 51 mg 1 tab PO QPM #90 tabs 09/08/24 tablet (Entresto) rosuvastatin 5 mg tablet 5 mg PO QPM #90 tabs 01/10/25 Results & Data (ED) Vital Signs Vital Signs - 24 hr 04/05/25 11:09 04/05/25 11:11 04/05/25 11:14 Temperature 36.7 C Temperature Source Oral Pulse Rate 90 92 H 82 Pulse Rate [Apical] Pulse Rhythm Irregular Regular Pulse Rhythm [Apical] Pulse Strength Normal Respiratory Rate 16 16 Respiratory Effort / Characteristics Non-Labored Spontaneous Respiratory Depth Normal Respiratory Pattern Regular Blood Pressure 151/76 H Blood Pressure [Right Arm] Blood Pressure Mean 101 Blood Pressure Mean [Right Arm] Blood Pressure Position Semi-fowlers Blood Pressure Position [Right Arm] Pulse Oximetry 96 98 Oxygen Delivery Method Room Air Room Air Sepsis Recent Fever Within 48 Hours No Sepsis New/Unexplained Change in Mental Status No Sepsis Action Taken by Nursing No Action Required 04/05/25 12:00 04/05/25 13:02 04/05/25 14:00 Temperature Temperature Source Pulse Rate Pulse Rate [Apical] 87 85 73 Pulse Rhythm Pulse Rhythm [Apical] Regular Regular Pulse Strength Respiratory Rate 16 20 18 Respiratory Effort / Characteristics Non-Labored Spontaneous Non-Labored Non-Labored Spontaneous Respiratory Depth Normal Normal Normal Respiratory Pattern Regular Regular Blood Pressure Blood Pressure [Right Arm] 129/69 139/76 126/71 Blood Pressure Mean Blood Pressure Mean [Right Arm] 89 97 89 Blood Pressure Position Blood Pressure Position [Right Arm] Semi-fowlers Semi-fowlers Pulse Oximetry 96 95 96 Oxygen Delivery Method Room Air Room Air Room Air Sepsis Recent Fever Within 48 Hours Sepsis New/Unexplained Change in Mental Status Sepsis Action Taken by Nursing Laboratory Data Attestation: I reviewed the patient's lab results. 04/05/25 11:17 04/05/25 11:17 Lab Results 04/05/25 04/05/25 Range/Units 11:17 12:24 WBC 7.32 (4.8-10.8) K/ul RBC 4.17 L (4.20-5.40) M/uL Hgb 13.7 (12.0-16.0) g/dl Hct 40.1 (37.0-47.0) % MCV 96.2 (80.0-100.0) fL MCH 32.9 (25.0-34.0) pg MCHC 34.2 (32.0-36.0) g/dL RDW Std Deviation 52.9 H (36.4-46.3) fL RDW Coeff of Miranda 14.8 H (11.5-14.5) % Plt Count 210 (130-400) K/uL MPV 11.7 (9.4-12.4) fL Immature Gran % (Auto) 0.3 % Neut % (Auto) 49.5 % Lymph % (Auto) 38.5 % [place] % (Auto) 10.7 % Eos % (Auto) 0.5 % Baso % (Auto) 0.5 % Neut # (Auto) 3.62 (1.40-6.50) K/uL Lymph # (Auto) 2.82 (1.20-3.40) K/uL [place] # (Auto) 0.78 H (0.11-0.59) K/uL Eos # (Auto) 0.04 (0.00-0.50) K/uL Baso # (Auto) 0.04 (0.00-0.20) K/uL Immature Gran # (Auto) 0.02 (0.01-0.20) K/uL PT 10.6 (9.0-12.0) Seconds INR 1.0 (0.9-1.1) Sodium 139 (136-145) mmol/L Potassium 3.5 (3.5-5.1) mmol/L Chloride 104 (98-107) mmol/L Carbon Dioxide 27 (21-32) mmol/L Anion Gap 8 (3-11) BUN 21 (6-23) mg/dl Creatinine 0.59 L (0.6-1.2) mg/dl Est Cr Clr Drug Dosing Not Reportable eGFR 91.62 BUN/Creatinine Ratio 35.6 H (10-20) Glucose 105 H (70-99(Fasting)) mg/dl Calcium 9.4 (8.6-10.3) mg/dl Phosphorus 3.1 (2.5-4.9) mg/dl Magnesium 2.0 (1.7-2.4) mg/dl Total Bilirubin 0.5 (0.2-1.0) mg/dl AST 27 (13-39) U/L ALT 17 (7-52) U/L Alkaline Phosphatase 60 (34-104) U/L Troponin I High Sens 11.4 (0-14) pg/ml B-Natriuretic Peptide 311 H (0-100) pg/ml Total Protein 7.0 (6.0-8.3) gm/dl Albumin 4.2 (3.4-5.0) gm/dl Globulin 2.8 (2.5-4.0) gm/dl Albumin/Globulin Ratio 1.5 (0.9-2) Lipase 28 (11-82) U/L Urine Color Yellow Urine Appearance Clear (Clear) Urine pH 6.5 (4.5-7.5) Ur Specific [place] 1.006 (1.000-1.030) Urine Protein Negative (Negative) Urine Glucose (UA) Negative (Negative) Urine Ketones Negative (Negative) Urine Blood Negative (Negative) Urine Nitrite Negative (Negative) Urine Bilirubin Negative (Negative) Urine Urobilinogen Negative (Negative) Ur Leukocyte Esterase Negative (Negative) Urine Comment Administered Medications Aspirin (Aspirin 81 Mg Ectab) 81 mg PO QPM ERNESTO Stop: 05/05/25 20:59 Last Admin: 04/05/25 20:36 Dose: 81 mg Documented By: [facility] Metoprolol Succinate (Metoprolol Succ 50mg Ext Rel Tab) 50 mg PO QPM ERNESTO Stop: 05/05/25 20:59 Last Admin: 04/05/25 20:36 Dose: 50 mg Documented By: [facility] Rosuvastatin Calcium (Rosuvastatin Calcium 5 Mg Tab) 5 mg PO QPM ERNESTO Stop: 05/05/25 20:59 Last Admin: 04/05/25 20:36 Dose: 5 mg Documented By: [facility] Sacubitril/Valsartan (Valsartan/Sacubitril 51/49 Mg Tab) 1 tab PO QPM ERNESTO Stop: 05/05/25 20:59 Last Admin: 04/05/25 20:36 Dose: 1 tab Documented By: [facility] Imaging Data Radiologist's Impression: Chest X-Ray 04/05/25 11:13 XR chest 1V portable CLINICAL HISTORY: Chest pain, nonspecific COMPARISON STUDY: 06/08/2020 FINDINGS: Stable pacemaker. Stable mild cardiomegaly without pulmonary vascular congestion. No consolidation or pleural effusion. No pneumothorax. IMPRESSION: No acute findings. ACT 112: Negative or not required by law. Electronically signed by: Tommie Holt M.D. 04/05/2025 11:34 AM Discharge Plan Visit Data Chief Complaint: Chest Pain Stated Complaint: CARDIAC ASSESMENT ED Provider: Manish Hope Discharge Problem: AICD lead malfunction, Nonischemic cardiomyopathy, AICD problem Patient Disposition: Admitted As Inpatient Condition: Serious Discharge Instructions Interventions: ED Discharge Assessment Last Done: 04/05/25 17:39
[2025-04-05 12:13] LABS: Alanine Aminotransferase 17 U/L (7-52); Albumin Globulin Ratio 1.5 (0.9-2); Alkaline Phosphatase 60 U/L (34-104); Anion Gap 8 (3-11); Bilirubin,Total 0.5 mg/dl (0.2-1.0); Blood Urea Nitrogen 21 mg/dl (6-23); Calcium 9.4 mg/dl (8.6-10.3); Carbon Dioxide 27 mmol/L (21-32); Chloride 104 mmol/L (98-107); Globulin 2.8 gm/dl (2.5-4.0); Glucose 105 mg/dl (70-99(Fasting)); Lipase 28 U/L (11-82); Magnesium 2.0 mg/dl (1.7-2.4); Potassium 3.5 mmol/L (3.5-5.1); Sodium 139 mmol/L (136-145); Total Protein 7.0 gm/dl (6.0-8.3)
[2025-04-05 12:17] LABS: INR 1.0 (0.9-1.1); Prothrombin Time 10.6 Seconds (9.0-12.0)
[2025-04-05 12:38] LABS: Appearance Urine Clear (Clear); Glucose Urine UA Negative (Negative)
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
--- NOTE | 2025-04-05 15:40 | Electrocardiogram Report ---
Test Reason : Blood Pressure : */* mmHG Vent. Rate : 85 BPM Atrial Rate : 83 BPM P-R Int : 200 ms QRS Dur : 128 ms QT Int : 394 ms P-R-T Axes : 77 97 117 degrees QTcB Int : 468 ms Normal sinus rhythm with frequent , and consecutive Premature ventricular complexes Rightward axis Non-specific intra-ventricular conduction block Cannot rule out Anteroseptal infarct (cited on or before 25-Dec-2019) Abnormal ECG When compared with ECG of 25-Dec-2019 11:22, Questionable change in initial forces of Lateral leads Non-specific change in ST segment in Lateral leads T wave inversion now evident in Lateral leads Confirmed by Tez Snell [id number]) on 04/05/2025 3:40:06 PM Referred By: REFERRED SELF Confirmed By: Tez Snell
[2025-04-05] MEDS ORDERED: MELATONIN 3 MG TAB PO PRN (16:33)
[2025-04-05] MEDS ORDERED: POLYETHYLENE (MIRALAX) 17 GM PACK PO PRN (16:33)
[2025-04-05] MEDS ORDERED: ACETAMINOPHEN 325 MG TAB PO PRN (16:33)
[2025-04-05] MEDS ORDERED: ONDANSETRON INJ 2 MG/ML 2 ML VIAL IV PRN (16:33)
[2025-04-05] MEDS: ASPIRIN 81 MG ECTAB PO SCH (20:36)
[2025-04-05] MEDS: ROSUVASTATIN CALCIUM 5 MG TAB PO SCH (20:36)
[2025-04-05] MEDS: VALSARTAN/SACUBITRIL 51/49 MG TAB PO SCH (20:36)
[2025-04-05] MEDS: METOPROLOL SUCC 50MG EXT REL TAB PO SCH (20:36)
[2025-04-06 03:26] VITALS: RESP 18
--- NOTE | 2025-04-06 10:45 | Cardiology Progress Note ---
Date of Service April 06, 2025 Assessment & Plan (1) ICD (implantable cardioverter-defibrillator) in place: Plan: -The patient experienced 2 inappropriate defibrillator discharges yesterday. -Lead fracture identified. -Device currently off. -No need for external defibrillator pads at this time as she has normal LV function. -Dr. Rawls is aware. (2) Nonischemic cardiomyopathy: Plan: -Fortunately, echocardiogram done in late January notes normal LV systolic function. -Would continue metoprolol succinate 50 Mg daily. -Would continue Entresto 49/51 once daily (did not tolerate twice daily dosing). (3) Chronic systolic (congestive) heart failure: Plan: -Remains well compensated. -Left ventricular systolic function has normalized as described above. Admission and Anticipated Discharge Date Admission Date: April 05, 2025 Subjective The patient is resting comfortably in bed without complaints of chest pain or dyspnea. We have discussed the need for a new ICD lead. Physical Exam Physical Exam: In general this is a well-developed well-nourished white female in no acute distress. HEENT exam is negative. Neck is supple with full carotid upstrokes. There are no carotid bruits. No JVD. There is no thyromegaly. Cardiovascular exam reveals a regular rhythm with distant heart sounds. No obvious murmurs. No S3. Chest reveals a palpable device and well healed scar in the left subclavicular region. Lungs are clear without rales, rhonchi, or wheezes. Abdomen is soft and nontender without bruits. Extremities reveal intact radial artery and posterior tibial pulses bilaterally. There is no peripheral edema. Results & Data Vital Signs (Past 12 Hours) Vital Signs Temp Pulse Pulse Resp BP Pulse Ox O2 Del Method 04/06/25 08:23 36.3 C L 70 18 128/69 96 Room Air 04/06/25 07:42 60 04/06/25 03:25 36.5 C 68 18 120/71 94 Room Air 04/05/25 23:15 36.4 C L 51 L 16 107/63 96 Room Air Diagnostic Findings monitoring specialist notes normal sinus rhythm with occasional PVC. PG Care Time/CCT Total # of Minutes Spent Total Time Spent with Patient: Total time spent is greater than 50% in coordination of care (as documented) at patient's floor/unit and/or counseling patient: Coding Level of Care Code 24488 SUB INP/OBS CARE MIN Diagnoses ICD (implantable cardioverter-defibrillator) in place Z95.810 Nonischemic cardiomyopathy I42.8 Chronic systolic (congestive) heart failure I50.22
[2025-04-06 11:29] VITALS: BP 113/74; PULSE 81; TEMP 97.5; O2SAT 94
--- NOTE | 2025-04-06 13:25 | Discharge Summary ---
Discharge Summary Date of Service April 06, 2025 Principal Dx & Hospital Course #1 = Principal Diagnosis (1) AICD problem: (2) Chronic systolic (congestive) heart failure: (3) Hyperlipidemia: Plan #ICD misfiring Kavitha is a 79-year-old female with nonischemic cardiomyopathy, ICD in place, hyperlipidemia, and CHF who presents to the hospital after her ICD fired twice, inappropriately. Admitted for cardiology consultation and ICD repair. Per [employer] reportlead is broken. Cardiology consulted - plan to keep device inplace and deactivated. No medication changes, routine cardiology follow up #CHF BNP elevated at 311 - no prior for comparison, no oxygen requirement, no fluid on chest x-ray or edema on exam. Continue metoprolol and Entresto per cardiology #HLD Continue ASA and statin Dispo:discharge to home today Case discussed with Dr. Rawls Admission HPI Per Admitting Provider Kavitha is a 79-year-old female with nonischemic cardiomyopathy, ICD in place, hyperlipidemia, and CHF who presents to the hospital after her ICD fired twice. States that she woke up in her normal state of health this morning and was driving and got shocked by her ICD, shortly after she was shocked again. 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 Denies having chest pain, heart palpitations or any shortness of breath. No nausea vomiting or dizziness. She reports feeling well and understands that this was likely because one of her leads is broken and will need to be fixed. Family updated at bedside, she wishes to be a full code. 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 Smith, You were hospitalized after a misfire of your ICD. subsequently, your ICD has been turned off. You were seen by cardiology and will continue to keep device off, no need for lead replacement at this time. No changes to your home medications, please have routine follow up with cardiology. Please return to the ER if this continues to happen, CP or shortness of breath. Thanks for allowing us to participate in your care! Pending Studies at Discharge: No Stand-Alone Forms: My [facility] Medications and DC Order Prescriptions: Continued Entresto 49-51 mg tablet 1 tab PO QPM Qty: 90 3RF rosuvastatin 5 mg tablet 5 mg PO QPM Qty: 90 3RF ascorbic acid (vitamin C) [Vitamin C] 1,000 mg Tablet 2,000 mg PO QAM Patient Comments: 04/05- otc unable to verify cranberry fruit 400 mg Capsule 400 mg PO QAM Patient Comments: 04/05- otc unable to verify Rx Instructions: administer with meals zinc 50 mg Tablet 50 mg PO BID Patient Comments: 04/05- otc unable to verify [id number]-pmqyitk-[id number] 40-25-10-10 mg Capsule 1 cap PO QAM Patient Comments: 04/05- otc unable to verify coenzyme Q10 [CoQ-10] 100 mg Capsule 100 mg PO QAM Patient Comments: 04/05- otc unable to verify cholecalciferol (vitamin D3) [Vitamin D3] 25 mcg (1,000 unit) Tablet 75 mcg PO QAM Patient Comments: 04/05- otc unable to verify Calcium Magnesium 500 mg calcium -250 mg Tablet 1 tab PO QAM Patient Comments: 04/05- otc unable to verify aspirin 81 mg tablet,delayed release (DR/EC) 0 mg PO QPM Patient Comments: 04/05- otc unable to verify potassium chloride 10 mEq capsule, extended release 0 meq PO Q OTHER DAY Patient Comments: 04/05- otc/no fill history unable to verify Rx Instructions: with lasix metoprolol succinate 50 mg tablet extended release 24 hr 0 mg PO QPM Patient Comments: 04/05- no fill history unable to verify furosemide 20 mg tablet 0 mg PO Q OTHER DAY Patient Comments: 04/05- no fill history unable to verify Discharge Orders: Discharge Order (Routine); Ordered 04/06/25 Ordered By: Taya Curtis Admission Data Admit Date/Time: 04/05/25 14:48 Attending Provider: Beth Dumont Admit Provider: Ricardo Elder Primary Care Provider: Nilesh Tellez Other Providers: Ricardo Elder; Tez Snell Hospital Stay Data Consultations 04/05/25 14:17 ED Decision to Admit Stat 04/05/25 14:48 Consult Cardiology Routine Pending Results Patient Have Any Pending Studies at Discharge: No Discharge Instructions Given to Patient (Per Discharging Provider) Mrs. Smith, You were hospitalized after a misfire of your ICD. subsequently, your ICD has been turned off. You were seen by cardiology and will continue to keep device off, no need for lead replacement at this time. No changes to your home medications, please have routine follow up with cardiology. Please return to the ER if this continues to happen, CP or shortness of breath. Thanks for allowing us to participate in your care! Supervising Physician Co-Signing Physician Notes PA Supervision Note: I did not personally see or examine the patient today, but I verified all white points of KEMAR Curtis's assessment and plan with the following exceptions/additions: None Total Time Total Time Spent Total Time Spent (In Minutes): Time spent day of discharge 33 minutes including direct patient care, medication reconciliation, documentation, review of labs and images, and coordination of care. Coding Level of Care Code 80168 INP/OBS DISCH >30 MIN Diagnoses AICD problem T82.9XXA; Z95.810 Chronic systolic (congestive) heart failure I50.22 Hyperlipidemia E78.5
== END 2025-04-06 13:51 | disposition home or self-care (01) | DRG 309 ==
LOC: ED 11:04 → EDINP 14:48 → SUATTDRO 14:48 → 4W 17:39